=== PATIENT | male | born 1965 | race Caucasian/White ===

== ENCOUNTER 2018-10-06 16:50 | Emergency (ER) | payer BC, OTHER ==
[2018-10-06 16:58] VITALS: BP 152/95
[2018-10-06] MEDS ORDERED: Sodium Chloride 0.9% 10 ML Syringe FLUSH PRN (17:10)
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
--- NOTE | 2018-10-07 06:59 | CR ---
Chest: Portable view of the chest was obtained. Heart size and mediastinum are within normal limits for portable technique. Slightly lobulated right hemidiaphragm is seen which is incidental. Lungs are clear with no acute parenchymal change. Bony structures are grossly intact. Impression: 1. Nothing acute is appreciated on portable chest x-ray. Diagnostic code #1
== END 2018-10-06 18:58 | disposition home or self-care (01) ==
LOC: JD.ED 16:50
DX: R07.89 Other chest pain (principal); I12.9 Hypertensive chronic kidney disease with stage 1 through stage 4 chronic kidney disease, or unspecified chronic kidney disease; N18.9 Chronic kidney disease, unspecified; F17.210 Nicotine dependence, cigarettes, uncomplicated; E78.00 Pure hypercholesterolemia, unspecified; Z88.5 Allergy status to narcotic agent; Z79.899 Other long term (current) drug therapy
CPT/HCPCS: 36415; 71045; 71045-26; 80053; 84484; 85025; 93005; 93010; 99284; 99285-25

== ENCOUNTER 2018-12-14 11:56 | Emergency (ER) | payer SELFPAY ==
[2018-12-14 12:07] VITALS: BP 125/82
--- NOTE | 2018-12-14 12:44 | EDM.PDOC ---
ED HPI GENERAL MEDICAL PROBLEM - General Chief Complaint: Chest Pain Stated Complaint: CEHST PAIN Time Seen by Provider: 12/14/18 12:11 Source of Information: Reports: Patient, RN Notes Reviewed History Limitations: Reports: No Limitations - History of Present Illness Treatments NURSE PRACTITIONER HOME ASSESSMENTS: Reports: Other (see below) Other Treatments NURSE PRACTITIONER HOME ASSESSMENTS: nitro x 2 Chest Pain Score (Numeric/FACES): 4 - Related Data Allergies Allergy/AdvReac Type Severity Reaction Status Date / Time hydrocodone Allergy Itching Verified 10/06/18 16:55 Home Meds: Home Meds Chlorthalidone 25 mg PO DAILY 06/27/16 [History] Losartan [Cozaar] 50 mg PO DAILY 06/27/16 [History] Metoprolol Succinate [Toprol XL] 50 mg PO DAILY 06/27/16 [History] Nitroglycerin [Nitrostat] 0.4 mg SL ASDIRECTED PRN 06/27/16 [History] Simvastatin [Zocor] 20 mg PO DAILY 06/27/16 [History] Past Medical History HEENT History: Reports: Hard of Hearing Cardiovascular History: Reports: High Cholesterol, Hypertension Genitourinary History: Reports: Chronic Renal Insuffiency, Renal Calculus Other Genitourinary History: HX OF KIDNEY STONES Other Musculoskeletal History: RIGHT BICEP TENDON RUPTURE, Occasional back pain - Past Surgical History Head Surgeries/Procedures: Reports: None GI Surgical History: Reports: Colonoscopy Male Surgical History: Reports: Kidney Stone Extraction Social & Family History - Tobacco Use Smoking Status *Q: Current Every Day Smoker Years of Tobacco use: 38 Packs/Tins Daily: 1.5 - Caffeine Use Caffeine Use: Reports: Coffee, Soda - Recreational Drug Use Recreational Drug Use: No ED EXAM, GENERAL - Physical Exam Exam: See Below Exam Limited By: No Limitations General Appearance: Alert, WD/WN, No Apparent Distress Eye Exam: Bilateral Eye: EOMI, Normal Inspection Ears: Normal External Exam, Hearing Grossly Normal Nose: Normal Inspection Throat/Mouth: Normal Inspection, Normal Lips, Normal Voice, No Airway Compromise Head: Atraumatic, Normocephalic Neck: Normal Inspection, Full Range of Motion Respiratory/Chest: No Respiratory Distress, Lungs Clear, Normal Breath Sounds, No Accessory Muscle Use, Chest Non-Tender Cardiovascular: Normal Peripheral Pulses, Regular Rate, Rhythm, No Edema, No Gallop, No JVD, No Murmur, No Rub Peripheral Pulses: 4+: Radial (L), Radial (R) GI/Abdominal: Normal Bowel Sounds, Soft, Non-Tender, No Organomegaly, No Distention, No Abnormal Bruit, No Mass, Other (Obese) (Male) Exam: Deferred Rectal (Males) Exam: Deferred Back Exam: Normal Inspection, Full Range of Motion, NT Extremities: Normal Inspection, Normal Range of Motion, No Pedal Edema, Normal Capillary Refill Neurological: Alert, Oriented, Normal Cognition, No Motor/Sensory Deficits Psychiatric: Normal Affect Skin Exam: Warm, Dry, Intact, Normal Color, No Rash EKG INTERPRETATION EKG Date: 12/14/18 Time: 12:06 Rhythm: NSR Rate (Beats/Min): 75 [place]: Normal P-Wave: Enlarged (LAE) QRS: Other (RVH) ST-T: Normal QT: Normal Comparison: No Change (10/06/2018) Course - Vital Signs Last Recorded V/S: Last Vital Signs Temp 36.3 C 12/14/18 12:04 Pulse 77 12/14/18 12:04 Resp 14 12/14/18 12:04 BP 125/82 12/14/18 12:04 Pulse Ox - Orders/Labs/Meds Orders: Active Orders 24 hr Category Date Time Status EKG Documentation Completion [RC] ASDIRECTED Care 12/14/18 12:03 Active Chest 2V [CR] Stat Exams 12/14/18 12:38 Taken EKG 12 Lead [EK] Stat Ther 12/14/18 12:03 Ordered Labs: Laboratory Tests 12/14/18 12/14/18 12/14/18 Range/Units 12:15 12:15 12:15 WBC 8.05 (4.23-9.07) K/mm3 RBC 4.89 (4.63-6.08) M/mm3 Hgb 15.9 (13.7-17.5) gm/L Hct 44.5 (40.1-51.0) % MCV 91.0 (79.0-92.2) fl MCH 32.5 H (25.7-32.2) pg MCHC 35.7 H (32.2-35.5) g/dl RDW Std Deviation 42.7 (35.1-43.9) fL Plt Count 239 (163-337) K/mm3 MPV 10.7 (9.4-12.3) fl Neutrophils % (Manual) 49 (40-60) % Band Neutrophils % 0 (0-10) % Lymphocytes % (Manual) 39 (20-40) % Atypical Lymphs % 0 % Monocytes % (Manual) 10 (2-10) % Eosinophils % (Manual) 2 (0.8-7.0) % Basophils % (Manual) 0 L (0.2-1.2) Platelet Estimate Adequate Plt Morphology Comment See note RBC Morph Comment Normal D-Dimer, Quantitative < 0.19 L (0.19-0.50) mg/L Sodium 139 (136-145) mEq/L Potassium 3.7 (3.5-5.1) mEq/L Chloride 102 (98-107) mEq/L Carbon Dioxide 28 (21-32) mEq/L Anion Gap 12.7 (5-15) BUN 14 (7-18) mg/dL Creatinine 1.1 (0.7-1.3) mg/dL Est Cr Clr Drug Dosing 71.78 mL/min Estimated GFR (MDRD) > 60 (>60) mL/min BUN/Creatinine Ratio 12.7 L (14-18) Glucose 151 H (74-106) mg/dL Calcium 9.0 (8.5-10.1) mg/dL Total Bilirubin 0.4 (0.2-1.0) mg/dL AST 24 (15-37) U/L ALT 39 (16-63) U/L Alkaline Phosphatase 139 H (46-116) U/L Troponin I < 0.017 (0.00-0.056) ng/mL Total Protein 7.1 (6.4-8.2) g/dl Albumin 3.5 (3.4-5.0) g/dl Globulin 3.6 gm/dL Albumin/Globulin Ratio 1.0 (1-2) - Re-Assessments/Exams Free Text/Narrative Re-Assessment/Exam: 12/14/18 12:39 There are numerous features of the patient's story that are concerning for his symptoms being anginal. At this time, the patient is nearly asymptomatic. His ECG does not show any ischemic changes. I have ordered blood work and a chest x- ray. 12/14/18 13:16 2 view chest radiograph reviewed. The cardiac silhouette is at the upper limits of normal, but there is no pulmonary vascular congestion or pleural effusions to suggest decompensated CHF. No focal infiltrate seen. No pneumothorax. Formal read per the Radiologist pending. 12/14/18 14:50 Test results discussed with the patient. He continues to feel well, and has not had any recurrence of his earlier symptoms. Based on his history, I think it highly likely that his symptoms were due to angina, although it is possible that they could have been due to GERD or esophageal spasm. The patient may safely be discharged home, but I recommended that he avoid any sort of strenuous activity. I will refer him to our clinic, where an outpatient stress test can be arranged, and referral to cardiology, if indicated. Additionally, a PCP can re-prescribe his necessary medications. The other concern is the patient's blood glucose 151. He likely has diabetes, although may have prediabetes. This will also need to be evaluated further. Departure - Departure Time of Disposition: 14:52 Disposition: Home, Self-Care 01 Condition: Good Clinical Impression: Angina pectoris, Hyperglycemia Referrals: Mitchell Fuentes MD [Physician] - Forms: ED Department Discharge Additional Instructions: You were seen in the emergency room after developing shortness of breath, chest pressure, sweatiness/clamminess, and lightheadedness. Workup in the ER included blood work, a chest x-ray, and an ECG. Your workup was entirely unremarkable, with the exception that your blood sugar was found to be modestly elevated at 151. This indicates that you have, at least , prediabetes, and may actually have full diabetes. You have not suffered a heart attack, but there is a very good chance that your symptoms were due to angina = your heart not getting enough blood supply. We strongly recommend that you make an appointment to be seen by Dr. Shay, or one of the other providers in the clinic, at the next available appointment. They can arrange for an outpatient stress test, refill your necessary prescriptions, and evaluate your high blood sugar. In the meantime, we recommend that you avoid any strenuous activity. If your symptoms return, please do not wait to return to the ER. - My Orders Last 24 Hours: My Active Orders 12/14/18 12:03 EKG Documentation Completion [RC] ASDIRECTED EKG 12 Lead [EK] Stat 12/14/18 12:38 Chest 2V [CR] Stat - Assessment/Plan Last 24 Hours: My Active Orders 12/14/18 12:03 EKG Documentation Completion [RC] ASDIRECTED EKG 12 Lead [EK] Stat 12/14/18 12:38 Chest 2V [CR] Stat
--- NOTE | 2018-12-15 06:34 | CR ---
Chest: Two views of the chest were obtained. Comparison: Prior chest x-ray of 10/06/18. Heart size at the upper limits of normal. Upper mediastinum is within normal limits. Lungs are clear. Bony structures appear within normal limits for the patient's age. Slight lobulation of the right hemidiaphragm is stable and incidental. Impression: 1. Incidental findings. Nothing acute is appreciated. Diagnostic code #2
== END 2018-12-14 15:14 | disposition home or self-care (01) ==
LOC: JD.ED 11:56
DX: I20.9 Angina pectoris, unspecified (principal); E72.51 Non-ketotic hyperglycinemia; F17.210 Nicotine dependence, cigarettes, uncomplicated; I10 Essential (primary) hypertension; E78.00 Pure hypercholesterolemia, unspecified; Z79.899 Other long term (current) drug therapy; Z88.6 Allergy status to analgesic agent
CPT/HCPCS: 36415; 71046; 71046-26; 80053; 84484; 85007; 85027; 85379; 93005; 99285-25